=== PATIENT | male | born 1995 | race Caucasian/White ===

== ENCOUNTER 2024-01-29 13:47 | Emergency (ER) | payer OTHER ==
[~2024-01-29] VITALS: Ht 185.4 cm; Wt 120.8 kg
[2024-01-29 13:48] VITALS: BP 137/69; TEMP 98.2; O2SAT 96
[2024-01-29 14:40] LABS: BASO # 0.1 10^3/uL (0.0-0.2); EOS # 0.4 10^3/uL (0.0-0.5); EOS % 4.9 % (0.0-3.0); HEMATOCRIT 41.7 % (42.0-52.0); HEMOGLOBIN 14.7 g/dl (13.5-17.5); LYMPH # 1.7 10^3/uL (1.5-5.0); LYMPH % 18.9 % (24.0-44.0); MEAN CORPUSCULAR HEMOGLOBIN 31.7 pg (27.0-33.0); MEAN CORPUSCULAR HGB CONC 35.3 g/dl (32.0-36.5); MEAN CORPUSCULAR VOLUME 90.1 fl (80.0-96.0); MONO # 0.7 10^3/uL (0.0-0.8); MONO % 7.6 % (2.0-8.0); NEUTROPHILS % 67.2 % (36.0-66.0); PLATELET COUNT, AUTOMATED 238 10^3/uL (150-450); RED BLOOD COUNT 4.63 10^6/uL (4.30-6.10)
[2024-01-29 14:48] LABS: ERYTHROCYTE SEDIMENTATION RATE 5 mm/hr (0-15)
== END 2024-01-29 15:48 | disposition home or self-care (01) ==
LOC: M ED 13:47
DX: I80.02 Phlebitis and thrombophlebitis of superficial vessels of left lower extremity (principal)